=== PATIENT | male | born 1980 | race Two or more races ===

== ENCOUNTER 2022-06-07 23:12 | Emergency (ER) | payer OTHER ==
[~2022-06-07] VITALS: Ht 175.3 cm; Wt 136.5 kg
[2022-06-07 23:18] VITALS: BP 0/0
[2022-06-07] MEDS ORDERED: HYDROCORTISONE SOD SUCC 100 MG/2ML INJ VIAL ONE (23:43)
[2022-06-07] MEDS ORDERED: EPINEPHrine HCL 1 MG/1 ML AMP ONE (23:51)
[2022-06-07] MEDS ORDERED: EPINEPHrine HCL 1 MG/10 ML SYRG ONE (23:52)
[2022-06-08] MEDS ORDERED: HYDROCORTISONE SOD SUCC 100 MG/2ML INJ VIAL IV ONE (01:30)
[2022-06-08] MEDS ORDERED: EPINEPHrine HCL 1 MG/10 ML SYRG IV ONE ×2 (01:30)
== END 2022-06-08 01:10 ==
LOC: ER 23:12 → EDSEX 23:12 → EDBD 23:18 → ER 23:18
DX: I46.9 Cardiac arrest, cause unspecified (principal); I10 Essential (primary) hypertension
CPT/HCPCS: 31500; 92950; 96374; 99291; J0171; J1720